=== PATIENT | female | born 1965 | race Caucasian/White ===

== ENCOUNTER 2016-11-27 17:09 | Emergency (ER) | payer OTHER ==
--- NOTE | ~2016-11-27 | EKG ---
PATIENT: JACK PRUETT UNIT #: [id number] Ventricular Rate: 96 BPM Atrial Rate: 96 BPM P-R Interval: 132 ms QRS Duration: 80 ms Q-T Interval: 370 ms QTC Calculation(Bezet): 467 ms P [place]: 60 degrees Calculated R [place]: 35 degrees Calculated T [place]: 41 degrees Diagnosis Line: Normal sinus rhythm Diagnosis Line: Normal ECG Diagnosis Line: When compared with ECG of 25-APR-2016 08:41, Diagnosis Line: No significant change was found Diagnosis Line: Confirmed by VITOR CAMPOS MD ([id number]) on Diagnosis Line: 11/28/2016 7:09:12 PM INTERPRETING MD: BETH HERNANDEZ
[~2016-11-27 17:09] MED LIST: ACETAMINOPHEN PO; ACETAMINOPHEN650 M3 PO; BACTRIM DS TABL1 TA1 PO; BACTRIM DS TABL1 TAB PO; DICLOFENAC PO; EXCEDRIN MIGRAI1 TA1 PO; FLEXERIL10 MG PO; IBUPROFEN PO; KEFLEX PO; LISINOPRIL20 MG PO; LORTAB 5/500 TA1 TA1 PO; PHENERGAN PO; RISPERIDONE PO; ROPINIROLE HCL3 MG PO; VALACYCLOVIR500 MG PO; VALTREX PO; VICODIN 5/500 T1 TAB PO; ZOLOFT PO
[2016-11-27 17:52] LABS: URINE SOURCE CLEAN CATCH
[2016-11-27 17:59] LABS: URINE APPEARANCE CLEAR; URINE BILIRUBIN NEG (NEG); URINE BLOOD 1+ (NEG); URINE COLOR YELLOW; URINE GLUCOSE NEG (NEG); URINE KETONE NEG (NEG); URINE LEUKOCYTE ESTERASE NEG (NEG); URINE NITRATE NEG (NEG); URINE PROTEIN NEG (NEG); URINE SPECIFIC GRAVITY 1.022 (1.003-1.035)
[2016-11-27 18:00] LABS: BASOPHIL# 0.1 X10e3 (0-0.3); BASOPHIL% 0.6 % (0-2.5); EOSINOPHIL# 0.3 X10e3 (0-0.7); EOSINOPHIL% 2.8 % (0.0-7.0); HEMATOCRIT 39.6 % (35.0-45.0); HEMOGLOBIN 12.9 gm/dL (12.0-16.0); LYMPHOCYTE% 28.4 % (17.0-45.0); MEAN CELL VOLUME 83.6 FL (83-96); MEAN CORPUSCULAR HEMOGLOBIN 27.2 PG (28-34); MEAN CORPUSCULAR HGB CONC 32.5 g/dL (30-36); MEAN PLATELET VOLUME 6.6 FL (6.5-11.5); MONOCYTE# 0.5 X10e3 (0-1.0); MONOCYTE% 4.7 % (3.0-12.0); NEUTROPHIL# 6.7 X10e3 (1.5-7.1); NEUTROPHIL% 63.5 % (40-75); PLATELET COUNT 399 X10e3 (140-420); RED BLOOD COUNT 4.73 X10e (3.90-5.30); RED CELL DISTRIBUTION WIDTH 14.1 % (11.0-15.5); WHITE BLOOD COUNT 10.5 X10e3 (4.0-10.5)
[2016-11-27 18:02] LABS: URINE BACTERIA AUWI NEG (NEGATIVE); URINE SQUAMOUS EPITHELIAL CELL NONE SEEN /[HPF]
[2016-11-27 18:03] LABS: DIFF IND NO
[2016-11-27 18:04] LABS: CULTURE INDICATED? NO
[2016-11-27 18:27] LABS: ALBUMIN SERUM 4.1 g/dL (3.5-5.0); BILIRUBIN, DIRECT 0.1 mg/dL (0.0-0.2); BILIRUBIN,INDIRECT 0.5 mg/dL (0.0-0.9); BILIRUBIN,TOTAL 0.6 mg/dL (0.2-2.0); BUN/CREATININE RATIO 21.42; CALCIUM SERUM 9.6 mg/dL (8.4-10.2); CREATININE SERUM 0.7 mg/dL (0.6-1.4); POTASSIUM 4.3 mmol/L (3.5-5.1); PROTEIN TOTAL SERUM 7.4 g/dL (6.0-8.3)
[2016-11-27 19:04] LABS: POC - CKMB <1.0 ng/mL (0.0-7.9); POC - TROPONIN <0.05 ng/mL (<=0.05)
== END 2016-11-27 19:15 | disposition home or self-care (01) ==
LOC: CED 17:09
PROVIDERS: Emergency Medicine
DX: Z53.21 Procedure and treatment not carried out due to patient leaving prior to being seen by health care provider (principal)
CPT/HCPCS: 80048; 80076; 81003; 82553; 84484; 85025; 93005